=== PATIENT | female | born 1990 | race Caucasian/White ===

== ENCOUNTER 2019-04-28 10:30 | Emergency (ER) | payer BC, OTHER ==
[2019-04-28 11:42] VITALS: BP 98/56
[2019-04-28 11:54] LABS: Influenza A Molecular POSITIVE (Negative)
--- NOTE | 2019-04-28 12:35 | UC ---
Respiratory Complaint HPI - HPI Summary HPI Summary: per medical auditor "Fever (tmax 102.1), headache, PND, "scratchy" throat, productive cough, decreased appetite, myaglias, chills, sweats, and fatigue since last night. Did not get an influenza vaccine. Coworkers with similar symptoms." -works at [employer] -has kids at home. -denies asthma or medical issues. -denies preganncy - History of Current Complaint Chief Complaint: UCRespiratory Stated Complaint: FEVER,SORE THROAT,ACHY Time Seen by Provider: 04/28/19 11:53 Hx Last Menstrual Period: "three weeks ago" Pain Intensity: 6 - Allergies/Home Medications Allergies/Adverse Reactions: Allergies Allergy/AdvReac Type Severity Reaction Status Date / Time bee venom protein (honey bee) Allergy Hives and Verified 04/28/19 11:38 Swelling morphine Allergy Hives Verified 04/28/19 11:38 Home Medications: Home Medications Dm/PE/Acetaminophen/Doxylamine [Vicks Dayquil-Nyquil Cold-Flu] 1 cap PO Q6H PRN 04/28/19 [History Confirmed 04/28/19] Norelgestromin/Ethin.estradiol [Xulane Patch] 1 each TD WE 04/28/19 [History Confirmed 04/28/19] Oseltamivir CAP* [Tamiflu CAP*] 75 mg PO BID #10 cap 04/28/19 [Rx] PMH/Surg Hx/FS Hx/Imm Hx Previously Healthy: Yes - Surgical History Surgical History: None - Family History Known Family History: Positive: Non-Contributory - Social History Alcohol Use: Occasionally Substance Use Type: None Smoking Status (MU): Former Smoker Type: Cigarettes Amount Used/How Often: varies each day Length of Time of Smoking/Using Tobacco: <1/2 PPD On and Off x 5 Years Have You Smoked in the Last Year: Yes When Did the Patient Quit Smoking/Using Tobacco: 2019 Review of Systems All Other Systems Reviewed And Are Negative: Yes Constitutional: Positive: Fever, Chills, Fatigue Skin: Positive: Negative. Negative: Rash Eyes: Positive: Negative ENT: Positive: Sore Throat, Nasal Discharge Respiratory: Positive: Cough. Negative: Shortness Of Breath Cardiovascular: Positive: Negative. Negative: Palpitations, Chest Pain Gastrointestinal: Positive: Negative. Negative: Vomiting, Diarrhea, Nausea Genitourinary: Positive: Negative Motor: Positive: Negative Neurovascular: Positive: Negative Musculoskeletal: Positive: Negative Neurological/Mental Status: Positive: Negative Psychological: Positive: Negative Is Patient Immunocompromised?: No Physical Exam Triage Information Reviewed: Yes Appearance: Ill-Appearing - mild-mod. still smiling and pleasnt Vital Signs: Initial Vital Signs Temp 99.6 F 04/28/19 11:35 Pulse 98 04/28/19 11:35 Resp 18 04/28/19 11:35 BP 98/56 04/28/19 11:35 Pulse Ox 96 04/28/19 11:35 Eye Exam: Normal Eyes: Positive: Conjunctiva Clear ENT Exam: Normal ENT: Positive: Pharyngeal erythema - mild., Nasal drainage, TMs normal. Negative: Tonsillar swelling, Tonsillar exudate Neck exam: Normal Neck: Positive: Supple, Nontender, No Lymphadenopathy Respiratory Exam: Normal Respiratory: Positive: Lungs clear, Normal breath sounds, No respiratory distress, No accessory muscle use. Negative: Crackles, Stridor, Wheezing Cardiovascular Exam: Normal Cardiovascular: Positive: RRR Abdominal Exam: Normal Abdomen Description: Positive: Nontender, Soft Musculoskeletal Exam: Normal Neurological Exam: Normal Psychological Exam: Normal Skin Exam: Normal Skin: Negative: Rashes Respiratory Course/Dx - Course Course Of Treatment: + rapid flu. sx started sudennly ast night -prefers to use tamiflu. has kids at home. -COSME. apapm, res, fluids - Differential Dx/Diagnosis Differential Diagnosis/HQI/PQRI: Influenza, Laryngitis, Lower Resp Infection Provider Diagnosis: Influenza Discharge ED - Sign-Out/Discharge Documenting (check all that apply): Patient Departure All imaging exams completed and their final reports reviewed: No Studies - Discharge Plan Condition: Stable Disposition: HOME Prescriptions: Oseltamivir CAP* [Tamiflu CAP*] 75 mg PO BID #10 cap Patient Education Materials: Influenza (ED) Forms: *Work Release Referrals: No Primary Care Phys,NOPCP [Primary Care Provider] - Additional Instructions: Out of work x 5 days. 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 We talked about the use of tamiflu, pros/cons/side effects. You prefer to use the tamiflu. Please call your children's doctor to notify of positive flu as it may be recommended for them to be on preventative tamiflu dose if appropriate. -Follow up with your PCP Dr Zepeda in [place] in 5-6 days or seek care sooner if your symptoms worsen. - Billing Disposition and Condition Condition: STABLE Disposition: Home
== END 2019-04-28 12:54 | disposition home or self-care (01) ==
LOC: UCCORT 10:30
DX: J11.1 Influenza due to unidentified influenza virus with other respiratory manifestations (principal); Z87.891 Personal history of nicotine dependence; Z88.5 Allergy status to narcotic agent; Z91.030 Bee allergy status
CPT/HCPCS: 99212; G0463